=== PATIENT | female | born 1965 | race American Indian/Alaskan Native ===

== ENCOUNTER 2017-05-31 13:50 | Outpatient (CLI) | payer OTHER ==
[2017-05-31] MEDS ORDERED: PROVENTIL IH ONE (14:26)
== END 2017-05-31 13:51 | disposition home or self-care (01) ==
LOC: PF 13:50
PROVIDERS: ATTEND Internal Medicine
DX: J45.909 Unspecified asthma, uncomplicated (principal)
CPT/HCPCS: 94060; 94640